=== PATIENT | female | born 1935 | race African-American/Black ===

== ENCOUNTER 2018-08-31 23:49 | Emergency (ER) | payer BC, MEDICARE ==
[~2018-08-31] VITALS: Ht 172.7 cm; Wt 55.0 kg
[2018-09-01 04:58] LABS: BASOPHILS % 0.5 % (0.0-2.0); EOSINOPHILS % 0.3 % (0.0-5.0); HEMATOCRIT. 31.7 % (36.0-48.0); HEMOGLOBIN. 10.1 g/dL (12.0-16.0); LYMPHOCYTES % 17.1 % (20.0-50.0); MEAN CORPUSCULAR HEMOGLOBIN 21.9 pg (28.0-32.0); MEAN CORPUSCULAR VOLUME 68.7 fL (81.0-99.0); MONOCYTES % 10.4 % (2.0-8.0); NEUTROPHILS % 71.7 % (40.0-76.0); PLATELET 162 x1000/uL (130-400); RED BLOOD CELL COUNT 4.62 mill/uL (4.2-5.4); RED CELL DISTRIBUTION WIDTH 14.9 % (11.6-14.6)
[2018-09-01 05:05] LABS: CHLORIDE 109 mEq/L (98-107)
[2018-09-01 05:06] LABS: INR 1.1; PROTHROMBIN TIME 11.2 sec (9.1-11.1)
[2018-09-01] MEDS ORDERED: NA PHOS,M-B/NA PHOS,DI-BA ENEMA 118ML PR ONE (06:00)
[2018-09-01 07:11] LABS: PLATELET ESTIMATE NORMAL
[2018-09-01 08:30] VITALS: BP 148/65
== END 2018-09-01 08:33 | disposition home or self-care (01) ==
LOC: ER 23:59
DX: K59.00 Constipation, unspecified (principal); I10 Essential (primary) hypertension; Z90.710 Acquired absence of both cervix and uterus; Z98.890 Other specified postprocedural states
CPT/HCPCS: 36415; 74018; 74176; 80053; 85025; 85610; 99285

== ENCOUNTER → 2019-08-17 | Outpatient (CLI) | payer MEDICARE, BC ==
[2019-08-17 09:09] LABS: BASOPHILS % 0.9 % (0.0-2.0); EOSINOPHILS % 0.9 % (0.0-5.0); HEMATOCRIT. 35.3 % (36.0-48.0); LYMPHOCYTES % 25.6 % (20.0-50.0); MEAN CORPUSCULAR HEMOGLOBIN 21.7 pg (28.0-32.0); MEAN CORPUSCULAR VOLUME 70.1 fL (81.0-99.0); MEAN PLATELET VOLUME 7.9 fl (7.4-10.4); MONOCYTES % 6.6 % (2.0-8.0); PLATELET 160 x1000/uL (130-400); RED BLOOD CELL COUNT 5.04 mill/uL (4.2-5.4); RED CELL DISTRIBUTION WIDTH 14.3 % (11.6-14.6)
[2019-08-17 09:18] LABS: CHLORIDE 109 mEq/L (98-107)
[2019-08-17 09:26] LABS: PHOSPHORUS 3.2 mg/dL (2.5-4.9)
[2019-08-17 09:27] LABS: LDL CHOLESTEROL 88 mg/dL (5-100)
[2019-08-17 09:28] LABS: HDL CHOLESTEROL 75 mg/dL (40-59); T4 FREE 1.17 ng/dL (0.76-1.46)
[2019-08-18 09:06] LABS: VITAMIN D 25-OH 66.2 ng/mL (30.0-100.0)
[2019-08-18 10:11] LABS: A/G RATIO 1.2 (0.7-1.7); ALBUMIN 3.9 g/dL (2.9-4.4); ALPHA-1-GLOBULIN 0.2 g/dL (0.0-0.4); ALPHA-2-GLOBULIN 0.8 g/dL (0.4-1.0); GAMMA GLOBULINS 1.2 g/dL (0.4-1.8); GLOBULIN TOTAL 3.2 g/dL (2.2-3.9); M-SPIKE Not Observed g/dL (Not Observed); TOTAL PROTEIN SERUM 7.1 g/dL (6.0-8.5)
[2019-08-19 14:18] LABS: ANGIOTENSION CONVERTING ENZYME 47 U/L (14-82)
== END | disposition home or self-care (01) ==
LOC: LAB 08:36
PROVIDERS: ATTEND Internal Medicine Endocrinology, Diabetes & Metabolism
DX: I10 Essential (primary) hypertension (principal); R73.9 Hyperglycemia, unspecified; E83.52 Hypercalcemia
CPT/HCPCS: 36415; 80061; 82164; 82306; 83036; 84100; 84155; 84165; 84439; 84443

== ENCOUNTER → 2019-08-24 | Outpatient (CLI) | payer MEDICARE, BC | END | disposition home or self-care (01) | LOC: NM 06:50 | PROVIDERS: ATTEND Internal Medicine Endocrinology, Diabetes & Metabolism | DX: E21.0 Primary hyperparathyroidism (principal) | CPT/HCPCS: 78070; A9500; C1893 ==

== ENCOUNTER 2019-12-13 18:49 | Emergency (ER) | payer MEDICARE, BC ==
[~2019-12-13] VITALS: Ht 172.7 cm; Wt 53.7 kg
[2019-12-13] MEDS ORDERED: LIDOCAINE HCL 2% JELLY 5ML TOP ONE (21:15)
[2019-12-13 23:00] VITALS: BP 156/78
== END 2019-12-13 23:01 | disposition home or self-care (01) ==
LOC: ER 19:02
DX: K64.4 Residual hemorrhoidal skin tags (principal)
CPT/HCPCS: 99283

== ENCOUNTER 2021-01-30 20:31 | Inpatient (IN) | payer MEDICARE, BC ==
[~2021-01-30] VITALS: Ht 172.7 cm; Wt 49.5 kg
[2021-01-30 22:12] LABS: BASOPHILS % 0.8 % (0.0-2.0); EOSINOPHILS % 0.1 % (0.0-5.0); HEMATOCRIT. 37.1 % (36.0-48.0); HEMOGLOBIN. 11.6 g/dL (12.0-16.0); LYMPHOCYTES % 11.1 % (20.0-50.0); MEAN CORPUSCULAR HEMOGLOBIN 21.7 pg (28.0-32.0); MEAN CORPUSCULAR VOLUME 69.5 fL (81.0-99.0); MEAN PLATELET VOLUME 9.3 fl (7.4-10.4); PLATELET 168 x1000/uL (130-400); RED BLOOD CELL COUNT 5.33 mill/uL (4.2-5.4); RED CELL DISTRIBUTION WIDTH 14.5 % (11.6-14.6)
[2021-01-30 22:17] LABS: CHLORIDE 105 mEq/L (98-107)
[2021-01-30 22:28] LABS: PLATELET ESTIMATE NORMAL
[2021-01-30 22:47] LABS: CLARITY URINE CLEAR (CLEAR); COLOR URINE YELLOW (YELLOW); KETONES URINE 1+ (NEGATIVE); LEUKOCYTE ESTERASE URINE NEGATIVE (NEGATIVE); NITRITE URINE NEGATIVE (NEGATIVE); OCCULT BLOOD URINE NEGATIVE (NEGATIVE); PH URINE 5.5 (4.5-8.0); PROTEIN URINE 2+ (NEGATIVE); SPECIFIC GRAVITY URINE 1.017 (1.005-1.030)
[2021-01-30] MEDS ORDERED: AMLODIPINE 5MG TABLET PO ONE (23:30)
[2021-01-31 02:55] VITALS: BP 179/71
[2021-01-31] MEDS ORDERED: AMLO-79 PO (03:51)
[2021-01-31] MEDS ORDERED: NEBI10TA2 PO (03:51)
[2021-01-31] MEDS ORDERED: HYDR100T26 PO (03:51)
[2021-01-31] MEDS ORDERED: CLON0.2T PO (03:51)
[2021-01-31] MEDS ORDERED: ACETAMINOPHEN 325MG TABLET PO PRN (04:30)
[2021-01-31] MEDS ORDERED: ONDANSETRON HCL 4MG/2ML INJ IV PRN (04:30)
[2021-01-31] MEDS ORDERED: NON FORMULARY PATIENT HOME MED XX SCH (04:30)
[2021-01-31] MEDS: CLONIDINE 0.2MG TABLET PO SCH ×3 (06:19→22:00)
[2021-01-31] MEDS ORDERED: NEBIVOLOL HCL 5 MG TABLET PO SCH ×2 (06:30→09:00)
[2021-01-31 07:51] VITALS: BP 192/70
[2021-01-31] MEDS: AMLODIPINE 10MG TABLET PO SCH (08:12)
[2021-01-31] MEDS: HYDRALAZINE HCL 100MG TABLET PO SCH ×3 (08:12→22:00)
[2021-01-31] MEDS: BENAZEPRIL 10MG TABLET PO SCH (08:13)
[2021-01-31] MEDS: HEPARIN 5000 UNITS/ML VIAL SUBCUT SCH ×2 (08:14→20:55)
[2021-01-31 09:14] LABS: BASOPHILS % 0.8 % (0.0-2.0); EOSINOPHILS % 0.3 % (0.0-5.0); HEMATOCRIT. 35.9 % (36.0-48.0); HEMOGLOBIN. 11.2 g/dL (12.0-16.0); LYMPHOCYTES % 18.3 % (20.0-50.0); MEAN CORPUSCULAR HEMOGLOBIN 21.6 pg (28.0-32.0); MEAN CORPUSCULAR VOLUME 69.4 fL (81.0-99.0); MEAN PLATELET VOLUME 9.2 fl (7.4-10.4); MONOCYTES % 10.1 % (2.0-8.0); NEUTROPHILS % 70.5 % (40.0-76.0); PLATELET 157 x1000/uL (130-400); RED BLOOD CELL COUNT 5.18 mill/uL (4.2-5.4); RED CELL DISTRIBUTION WIDTH 13.9 % (11.6-14.6)
[2021-01-31 09:22] LABS: CHLORIDE 109 mEq/L (98-107)
[2021-01-31 11:49] VITALS: BP 125/44
[2021-01-31 14:56] VITALS: BP 163/59
[2021-01-31] MEDS: ASPIRIN 81MG TABLET PO SCH (16:36)
[2021-01-31 20:00] VITALS: BP_SYST 103; BP_SYST 114; BP_SYST 93; BP_DIAS 33; BP_DIAS 38; BP_DIAS 39
[2021-01-31] MEDS: ATORVASTATIN CALCIUM 40MG TABLET PO SCH (20:55)
[2021-01-31] MEDS: TRAZODONE HCL 50MG TABLET PO SCH (20:55)
[2021-02-01] VITALS (8 sets, daily range): BP systolic 90–143; BP diastolic 35–47
[2021-02-01] MEDS: HYDRALAZINE HCL 100MG TABLET PO SCH ×3 (06:23→21:22)
[2021-02-01] MEDS: CLONIDINE 0.2MG TABLET PO SCH (06:23)
[2021-02-01] MEDS: BENAZEPRIL 10MG TABLET PO SCH (08:48)
[2021-02-01] MEDS: HEPARIN 5000 UNITS/ML VIAL SUBCUT SCH ×2 (08:49→21:19)
[2021-02-01] MEDS: CLOPIDOGREL 75MG TABLET PO SCH (08:49)
[2021-02-01] MEDS: ASPIRIN 81MG TABLET PO SCH (08:49)
[2021-02-01] MEDS: AMLODIPINE 10MG TABLET PO SCH (08:49)
[2021-02-01] MEDS ORDERED: NEBIVOLOL HCL 5 MG TABLET PO SCH (09:00)
[2021-02-01] MEDS: DOCUSATE SODIUM SUGAR FREE 100MG/10ML UDC NG SCH (10:36)
[2021-02-01] MEDS: CLONIDINE 0.1MG TABLET PO SCH ×2 (13:17→22:00)
[2021-02-01] MEDS: ATORVASTATIN CALCIUM 40MG TABLET PO SCH (21:20)
[2021-02-01] MEDS: TRAZODONE HCL 50MG TABLET PO SCH (21:20)
[2021-02-02 00:12] VITALS: BP 130/51
[2021-02-02 04:00] VITALS: BP 136/50
[2021-02-02] MEDS: CLONIDINE 0.1MG TABLET PO SCH (05:25)
[2021-02-02] MEDS: HYDRALAZINE HCL 100MG TABLET PO SCH ×2 (05:26→13:30)
[2021-02-02 06:41] LABS: BASOPHILS % 0.6 % (0.0-2.0); EOSINOPHILS % 1.3 % (0.0-5.0); HEMATOCRIT. 33.2 % (36.0-48.0); HEMOGLOBIN. 10.6 g/dL (12.0-16.0); LYMPHOCYTES % 21.8 % (20.0-50.0); MEAN CORPUSCULAR HEMOGLOBIN 22.1 pg (28.0-32.0); MEAN CORPUSCULAR VOLUME 69.5 fL (81.0-99.0); MONOCYTES % 12.6 % (2.0-8.0); NEUTROPHILS % 63.7 % (40.0-76.0); PLATELET 162 x1000/uL (130-400); RED BLOOD CELL COUNT 4.78 mill/uL (4.2-5.4); RED CELL DISTRIBUTION WIDTH 14.2 % (11.6-14.6)
[2021-02-02 08:00] VITALS: BP 130/49
[2021-02-02] MEDS: ASPIRIN 81MG TABLET PO SCH (08:30)
[2021-02-02] MEDS: DOCUSATE SODIUM SUGAR FREE 100MG/10ML UDC NG SCH (08:30)
[2021-02-02] MEDS: CLOPIDOGREL 75MG TABLET PO SCH (08:30)
[2021-02-02] MEDS: HEPARIN 5000 UNITS/ML VIAL SUBCUT SCH (08:31)
[2021-02-02] MEDS ORDERED: BENAZEPRIL 10MG TABLET PO SCH (09:00)
[2021-02-02] MEDS ORDERED: AMLODIPINE 10MG TABLET PO SCH (09:00)
[2021-02-02 12:11] VITALS: BP_SYST 114; BP_SYST 115; BP_SYST 137; BP_DIAS 40; BP_DIAS 41; BP_DIAS 47
[2021-02-02] MEDS ORDERED: SENNOSIDES/DOCUSATE SOD 8.6/50MG TABLET PO PRN (12:15)
[2021-02-02] MEDS ORDERED: BISACODYL 10MG SUPP PR PRN (12:15)
[2021-02-02] MEDS ORDERED: MAGNESIUM HYDROXIDE 400MG/5ML 30ML UDC PO PRN (12:15)
[2021-02-02 16:07] VITALS: BP 119/43
[2021-02-02 20:00] VITALS: BP_SYST 119; BP_SYST 124; BP_SYST 127; BP_DIAS 41; BP_DIAS 44; BP_DIAS 49
[2021-02-02] MEDS ORDERED: AMLODIPINE 5MG TABLET PO SCH (21:00)
== END 2021-02-02 20:15 | DRG 64 ==
LOC: ER 20:31 → 6WST 01-31 00:43 → EDBEDREQTM 01-31 00:50 → EDBEDREQ 01-31 00:50 → EDBEDREQDT 01-31 00:50 → ENRESERV 01-31 02:24
PROVIDERS: ADMIT Internal Medicine; ATTEND Internal Medicine
DX: I63.9 Cerebral infarction, unspecified (principal); N17.0 Acute kidney failure with tubular necrosis; I16.1 Hypertensive emergency; E44.0 Moderate protein-calorie malnutrition; J98.11 Atelectasis; Z68.1 Body mass index [BMI] 19.9 or less, adult; D64.9 Anemia, unspecified; E87.8 Other disorders of electrolyte and fluid balance, not elsewhere classified; G47.00 Insomnia, unspecified; K59.00 Constipation, unspecified; M41.9 Scoliosis, unspecified; I11.9 Hypertensive heart disease without heart failure; R82.4 Acetonuria; E03.9 Hypothyroidism, unspecified; Z20.822 Contact with and (suspected) exposure to COVID-19; Z79.899 Other long term (current) drug therapy; Z91.14 Patient's other noncompliance with medication regimen; Z86.73 Personal history of transient ischemic attack (TIA), and cerebral infarction without residual deficits; Z90.710 Acquired absence of both cervix and uterus; Z91.19 Patient's noncompliance with other medical treatment and regimen
CPT/HCPCS: 36415; 70551; 71045; 80048; 80053; 80061; 81003; 83036; 83735; 84484; 85025; 87426; 93005; 93306; 93880; 95816; 97116; 97162; 97166; 97530; 97535; 99291; J1644

== ENCOUNTER 2021-02-02 20:21 | Inpatient (IN) | payer MEDICARE, BC ==
[~2021-02-02] VITALS: Ht 172.7 cm; Wt 53.7 kg
[2021-02-02 20:00] VITALS: BP 130/40
[2021-02-02 20:21] VITALS: BP 130/40
[~2021-02-02 20:21] MED LIST: AMLO-79 PO; CLON0.2T PO; HYDR100T26 PO; NEBI10TA2 PO
[2021-02-02] MEDS ORDERED: MAGNESIUM HYDROXIDE 400MG/5ML 30ML UDC PO PRN (21:15)
[2021-02-02] MEDS ORDERED: SENNOSIDES/DOCUSATE SOD 8.6/50MG TABLET PO PRN (21:15)
[2021-02-02] MEDS ORDERED: ONDANSETRON HCL 4MG/2ML INJ IV PRN (21:15)
[2021-02-02] MEDS ORDERED: BISACODYL 10MG SUPP PR PRN (21:15)
[2021-02-02] MEDS ORDERED: ACETAMINOPHEN 325MG TABLET PO PRN (21:15)
[2021-02-02] MEDS: ATORVASTATIN CALCIUM 40MG TABLET PO SCH (22:05)
[2021-02-02] MEDS: HYDRALAZINE HCL 100MG TABLET PO SCH (22:06)
[2021-02-02] MEDS: TRAZODONE HCL 50MG TABLET PO SCH (22:06)
[2021-02-02] MEDS: AMLODIPINE 5MG TABLET PO SCH (22:07)
[2021-02-02] MEDS: HEPARIN 5000 UNITS/ML VIAL SUBCUT SCH (22:08)
[2021-02-03] MEDS: HYDRALAZINE HCL 100MG TABLET PO SCH ×3 (06:07→21:41)
[2021-02-03 06:44] LABS: BASOPHILS % 0.6 % (0.0-2.0); HEMATOCRIT. 32.6 % (36.0-48.0); HEMOGLOBIN. 10.2 g/dL (12.0-16.0); LYMPHOCYTES % 24.1 % (20.0-50.0); MEAN CORPUSCULAR HEMOGLOBIN 21.8 pg (28.0-32.0); MEAN CORPUSCULAR VOLUME 69.6 fL (81.0-99.0); MEAN PLATELET VOLUME 8.5 fl (7.4-10.4); MONOCYTES % 11.6 % (2.0-8.0); NEUTROPHILS % 62.7 % (40.0-76.0); PLATELET 175 x1000/uL (130-400); RED BLOOD CELL COUNT 4.69 mill/uL (4.2-5.4); RED CELL DISTRIBUTION WIDTH 14.2 % (11.6-14.6)
[2021-02-03 06:50] LABS: CHLORIDE 105 mEq/L (98-107)
[2021-02-03 08:00] VITALS: BP 143/50
[2021-02-03] MEDS ORDERED: AMLODIPINE 5MG TABLET PO SCH (09:00)
[2021-02-03] MEDS: AMLODIPINE 5MG TABLET PO SCH ×2 (09:27→21:43)
[2021-02-03] MEDS: ASPIRIN 81MG EC TABLET PO SCH (09:27)
[2021-02-03] MEDS: CLOPIDOGREL 75MG TABLET PO SCH (09:28)
[2021-02-03] MEDS: HEPARIN 5000 UNITS/ML VIAL SUBCUT SCH ×2 (09:28→21:44)
[2021-02-03] MEDS ORDERED: BISACODYL 5MG TABLET PO PRN (14:00)
[2021-02-03] MEDS: DOCUSATE SODIUM 100MG CAPSULE PO SCH (16:25)
[2021-02-03 20:00] VITALS: BP 130/35
[2021-02-03] MEDS ORDERED: TRAZODONE HCL 50MG TABLET PO SCH (21:00)
[2021-02-03] MEDS ORDERED: ATORVASTATIN CALCIUM 40MG TABLET PO SCH (21:00)
[2021-02-03] MEDS: ATORVASTATIN CALCIUM 40MG TABLET PO SCH (21:42)
[2021-02-03] MEDS: TRAZODONE HCL 50MG TABLET PO SCH (21:42)
[2021-02-04] MEDS: HYDRALAZINE HCL 100MG TABLET PO SCH ×3 (05:57→21:33)
[2021-02-04 08:00] VITALS: BP 117/45
[2021-02-04] MEDS: CLOPIDOGREL 75MG TABLET PO SCH (09:04)
[2021-02-04] MEDS: AMLODIPINE 5MG TABLET PO SCH ×2 (09:04→21:33)
[2021-02-04] MEDS: HEPARIN 5000 UNITS/ML VIAL SUBCUT SCH ×2 (09:04→21:35)
[2021-02-04] MEDS: ASPIRIN 81MG EC TABLET PO SCH (09:04)
[2021-02-04] MEDS: DOCUSATE SODIUM 100MG CAPSULE PO SCH ×2 (09:04→16:25)
[2021-02-04 20:00] VITALS: BP 145/53
[2021-02-04] MEDS: ATORVASTATIN CALCIUM 40MG TABLET PO SCH (21:32)
[2021-02-04] MEDS: TRAZODONE HCL 50MG TABLET PO SCH (21:33)
[2021-02-05] MEDS: HYDRALAZINE HCL 100MG TABLET PO SCH ×2 (05:21→13:30)
[2021-02-05 08:00] VITALS: BP 142/41
[2021-02-05] MEDS: ASPIRIN 81MG EC TABLET PO SCH (08:32)
[2021-02-05] MEDS: CLOPIDOGREL 75MG TABLET PO SCH (08:32)
[2021-02-05] MEDS: DOCUSATE SODIUM 100MG CAPSULE PO SCH ×2 (08:32→16:47)
[2021-02-05] MEDS: AMLODIPINE 5MG TABLET PO SCH ×2 (08:32→21:43)
[2021-02-05] MEDS: HEPARIN 5000 UNITS/ML VIAL SUBCUT SCH ×2 (08:33→21:44)
[2021-02-05] MEDS ORDERED: BISACODYL 10MG SUPP PR SCH (11:30)
[2021-02-05 20:00] VITALS: BP 135/46
[2021-02-05] MEDS: ATORVASTATIN CALCIUM 40MG TABLET PO SCH (21:39)
[2021-02-05] MEDS: TRAZODONE HCL 50MG TABLET PO SCH (21:40)
[2021-02-05] MEDS: SENNOSIDES/DOCUSATE SOD 8.6/50MG TABLET PO SCH (21:40)
[2021-02-06] MEDS: HYDRALAZINE HCL 100MG TABLET PO SCH ×4 (00:46→21:45)
[2021-02-06 07:54] VITALS: BP 132/44
[2021-02-06] MEDS: HEPARIN 5000 UNITS/ML VIAL SUBCUT SCH ×2 (09:55→21:43)
[2021-02-06] MEDS: AMLODIPINE 5MG TABLET PO SCH ×2 (09:55→21:44)
[2021-02-06] MEDS: DOCUSATE SODIUM 100MG CAPSULE PO SCH ×2 (09:55→16:55)
[2021-02-06] MEDS: CLOPIDOGREL 75MG TABLET PO SCH (09:55)
[2021-02-06] MEDS: ASPIRIN 81MG EC TABLET PO SCH (09:55)
[2021-02-06 20:00] VITALS: BP 149/64
[2021-02-06] MEDS: SENNOSIDES/DOCUSATE SOD 8.6/50MG TABLET PO SCH (21:43)
[2021-02-06] MEDS: TRAZODONE HCL 50MG TABLET PO SCH (21:44)
[2021-02-06] MEDS: ATORVASTATIN CALCIUM 40MG TABLET PO SCH (21:44)
[2021-02-07] MEDS: HYDRALAZINE HCL 100MG TABLET PO SCH ×3 (06:07→21:46)
[2021-02-07 08:30] VITALS: BP 122/56
[2021-02-07] MEDS: CLOPIDOGREL 75MG TABLET PO SCH (09:20)
[2021-02-07] MEDS: DOCUSATE SODIUM 100MG CAPSULE PO SCH ×2 (09:20→17:25)
[2021-02-07] MEDS: ASPIRIN 81MG EC TABLET PO SCH (09:21)
[2021-02-07] MEDS: AMLODIPINE 5MG TABLET PO SCH ×2 (09:21→21:46)
[2021-02-07] MEDS: HEPARIN 5000 UNITS/ML VIAL SUBCUT SCH ×2 (09:21→21:45)
[2021-02-07 20:00] VITALS: BP 158/40
[2021-02-07] MEDS: SENNOSIDES/DOCUSATE SOD 8.6/50MG TABLET PO SCH (21:45)
[2021-02-07] MEDS: ATORVASTATIN CALCIUM 40MG TABLET PO SCH (21:45)
[2021-02-07] MEDS: TRAZODONE HCL 50MG TABLET PO SCH (21:45)
[2021-02-07 22:00] VITALS: BP 126/60
[2021-02-08] MEDS: HYDRALAZINE HCL 100MG TABLET PO SCH ×3 (06:02→21:14)
[2021-02-08 08:00] VITALS: BP 127/50
[2021-02-08] MEDS: DOCUSATE SODIUM 100MG CAPSULE PO SCH ×2 (08:50→17:00)
[2021-02-08] MEDS: ASPIRIN 81MG EC TABLET PO SCH (08:50)
[2021-02-08] MEDS: AMLODIPINE 5MG TABLET PO SCH ×2 (08:51→21:14)
[2021-02-08] MEDS: CLOPIDOGREL 75MG TABLET PO SCH (08:51)
[2021-02-08] MEDS: HEPARIN 5000 UNITS/ML VIAL SUBCUT SCH ×2 (08:52→21:14)
[2021-02-08] MEDS ORDERED: LACTULOSE 20G/30ML UDC PO NR (13:45)
[2021-02-08] MEDS ORDERED: BISACODYL 10MG SUPP PR PRN (18:00)
[2021-02-08] MEDS ORDERED: NA PHOS,M-B/NA PHOS,DI-BA ENEMA 118ML PR NR (18:30)
[2021-02-08 20:00] VITALS: BP 145/54
[2021-02-08] MEDS: LACTULOSE 20G/30ML UDC PO SCH (21:00)
[2021-02-08] MEDS: TRAZODONE HCL 50MG TABLET PO SCH (21:13)
[2021-02-08] MEDS: ATORVASTATIN CALCIUM 40MG TABLET PO SCH (21:13)
[2021-02-08] MEDS: SENNOSIDES/DOCUSATE SOD 8.6/50MG TABLET PO SCH (21:14)
[2021-02-09] MEDS: HYDRALAZINE HCL 100MG TABLET PO SCH ×3 (05:49→20:45)
[2021-02-09 08:00] VITALS: BP 131/52
[2021-02-09] MEDS: DOCUSATE SODIUM 100MG CAPSULE PO SCH ×2 (08:39→17:25)
[2021-02-09] MEDS: CLOPIDOGREL 75MG TABLET PO SCH (08:39)
[2021-02-09] MEDS: ASPIRIN 81MG EC TABLET PO SCH (08:39)
[2021-02-09] MEDS: HEPARIN 5000 UNITS/ML VIAL SUBCUT SCH ×2 (08:39→20:46)
[2021-02-09] MEDS: AMLODIPINE 5MG TABLET PO SCH ×2 (08:44→20:44)
[2021-02-09 11:41] LABS: BASOPHILS % 0.9 % (0.0-2.0); EOSINOPHILS % 1.5 % (0.0-5.0); HEMATOCRIT. 34.8 % (36.0-48.0); HEMOGLOBIN. 10.8 g/dL (12.0-16.0); LYMPHOCYTES % 22.8 % (20.0-50.0); MEAN CORPUSCULAR HEMOGLOBIN 21.8 pg (28.0-32.0); MEAN CORPUSCULAR VOLUME 70.3 fL (81.0-99.0); MONOCYTES % 10.5 % (2.0-8.0); NEUTROPHILS % 64.3 % (40.0-76.0); PLATELET 295 x1000/uL (130-400); RED BLOOD CELL COUNT 4.96 mill/uL (4.2-5.4); RED CELL DISTRIBUTION WIDTH 14.4 % (11.6-14.6)
[2021-02-09] MEDS ORDERED: CLOP75TA15 PO (11:48)
[2021-02-09] MEDS ORDERED: BISA5TAB10 PO (11:48)
[2021-02-09] MEDS ORDERED: LIP40 PO (11:48)
[2021-02-09] MEDS ORDERED: HYDR100T26 PO (11:48)
[2021-02-09] MEDS ORDERED: AMLO5TAB88 PO (11:48)
[2021-02-09] MEDS ORDERED: ASPI-1406 PO (11:48)
[2021-02-09] MEDS ORDERED: SENN1TAB35 PO (11:48)
[2021-02-09 11:52] LABS: CHLORIDE 103 mEq/L (98-107)
[2021-02-09] MEDS ORDERED: LOSA25TA26 MT (11:54)
[2021-02-09] MEDS ORDERED: NEBIVOLOL HCL 5 MG TABLET PO SCH (12:00)
[2021-02-09] MEDS: LOSARTAN POTASSIUM 25 MG TABLET PO SCH (14:53)
[2021-02-09] MEDS: SENNOSIDES/DOCUSATE SOD 8.6/50MG TABLET PO SCH (20:44)
[2021-02-09] MEDS: ATORVASTATIN CALCIUM 40MG TABLET PO SCH (20:45)
[2021-02-09] MEDS: TRAZODONE HCL 50MG TABLET PO SCH (20:45)
[2021-02-09] MEDS: LACTULOSE 20G/30ML UDC PO SCH (20:47)
[2021-02-10] MEDS: HYDRALAZINE HCL 100MG TABLET PO SCH (06:02)
[2021-02-10] MEDS: DOCUSATE SODIUM 100MG CAPSULE PO SCH (09:00)
[2021-02-10] MEDS: CLOPIDOGREL 75MG TABLET PO SCH (09:00)
[2021-02-10] MEDS: ASPIRIN 81MG EC TABLET PO SCH (09:00)
[2021-02-10] MEDS: LOSARTAN POTASSIUM 25 MG TABLET PO SCH (09:01)
[2021-02-10] MEDS: AMLODIPINE 5MG TABLET PO SCH (09:01)
[2021-02-10] MEDS: HEPARIN 5000 UNITS/ML VIAL SUBCUT SCH (09:03)
[2021-02-10 10:48] VITALS: BP 131/69
== END 2021-02-10 12:12 | disposition home health service (06) | DRG 65 ==
PROVIDERS: ADMIT Psychiatry & Neurology Neurology; ATTEND Internal Medicine
DX: I63.9 Cerebral infarction, unspecified (principal); E44.0 Moderate protein-calorie malnutrition; Z68.1 Body mass index [BMI] 19.9 or less, adult; I16.1 Hypertensive emergency; J98.11 Atelectasis; D64.9 Anemia, unspecified; G47.00 Insomnia, unspecified; I10 Essential (primary) hypertension; N19 Unspecified kidney failure; R80.9 Proteinuria, unspecified; M41.84 Other forms of scoliosis, thoracic region; R49.0 Dysphonia; R00.1 Bradycardia, unspecified; R79.89 Other specified abnormal findings of blood chemistry; K59.00 Constipation, unspecified; I27.20 Pulmonary hypertension, unspecified; I36.1 Nonrheumatic tricuspid (valve) insufficiency; E87.8 Other disorders of electrolyte and fluid balance, not elsewhere classified; T23.071A Burn of unspecified degree of right wrist, initial encounter; X08.8XXA Exposure to other specified smoke, fire and flames, initial encounter; R82.4 Acetonuria; Z91.14 Patient's other noncompliance with medication regimen; Y93.89 Activity, other specified; Y92.89 Other specified places as the place of occurrence of the external cause; Y99.8 Other external cause status
CPT/HCPCS: 36415; 80048; 83735; 85025; 92523; 92610; 93970; 97110; 97112; 97116; 97162; 97166; 97530; 97535; J1644

== ENCOUNTER → 2021-04-23 | Outpatient (CLI) | payer MEDICARE, BC ==
[~2021-04-23] MED LIST changes: -AMLO-79 PO; +AMLO5TAB88 PO; +ASPI-1406 PO; +BISA5TAB10 PO; -CLON0.2T PO; +CLOP75TA15 PO; +LIP40 PO; +LOSA25TA26 MT; +LOSA50TA41 PO; -NEBI10TA2 PO; +SENN1TAB35 PO
[2021-04-23 12:40] LABS: CLARITY URINE CLEAR (CLEAR); COLOR URINE YELLOW (YELLOW); KETONES URINE NEGATIVE (NEGATIVE); LEUKOCYTE ESTERASE URINE NEGATIVE (NEGATIVE); NITRITE URINE NEGATIVE (NEGATIVE); OCCULT BLOOD URINE NEGATIVE (NEGATIVE); PROTEIN URINE NEGATIVE (NEGATIVE); UROBILINOGEN URINE 0.2 E.U./dL (0.2-1.0)
[2021-04-23 12:50] LABS: BASOPHILS % 1.5 % (0.0-2.0); EOSINOPHILS % 3.8 % (0.0-5.0); HEMOGLOBIN. 10.5 g/dL (12.0-16.0); LYMPHOCYTES % 30.2 % (20.0-50.0); MEAN CORPUSCULAR HEMOGLOBIN 22.9 pg (28.0-32.0); MEAN CORPUSCULAR VOLUME 69.9 fL (81.0-99.0); MEAN PLATELET VOLUME 7.7 fl (7.4-10.4); MONOCYTES % 11.9 % (2.0-8.0); NEUTROPHILS % 52.6 % (40.0-76.0); PLATELET 213 x1000/uL (130-400); RED BLOOD CELL COUNT 4.57 mill/uL (4.2-5.4); RED CELL DISTRIBUTION WIDTH 15.2 % (11.6-14.6)
[2021-04-23 12:57] LABS: CHLORIDE 110 mEq/L (98-107)
[2021-04-23 13:30] LABS: PARTIAL THROMBOPLASTIN TIME 28.5 sec (23.4-31.0); PROTHROMBIN TIME 10.9 sec (9.6-11.0)
[2021-04-23 13:38] LABS: PLATELET ESTIMATE NORMAL
== END | disposition home or self-care (01) ==
LOC: LAB 12:04
PROVIDERS: ATTEND Specialist
DX: Z01.812 Encounter for preprocedural laboratory examination (principal); Z20.822 Contact with and (suspected) exposure to COVID-19
CPT/HCPCS: 36415; 80048; 81003; 85025; 87426

== ENCOUNTER → 2021-04-24 | Day surgery (SDC) | payer MEDICARE, BC ==
[~2021-04-24] VITALS: Ht 172.7 cm; Wt 50.8 kg
[~2021-04-24] MED LIST changes: +BUPIVACAINE HCL/PF 0.5% (5MG/ML) 10ML ONE; +LACTATED RINGERS 1,000 ML IV SCH; +LIDOCAINE HCL 1% 20ML VIAL (Pyxis) INJ ONE; +METHYLENE BLUE 50 MG/10 ML AMP IV ONE; +POLYMYXIN B SULFATE 500000 UNITS/VIAL ONE; +SKIN ADHESIVE 0.7 GM EA TOP ONE
== END | disposition home or self-care (01) ==
LOC: OR 05:52
PROVIDERS: ATTEND Specialist
DX: R92.8 Other abnormal and inconclusive findings on diagnostic imaging of breast (principal); Z53.8 Procedure and treatment not carried out for other reasons; I10 Essential (primary) hypertension; E78.00 Pure hypercholesterolemia, unspecified; Z86.73 Personal history of transient ischemic attack (TIA), and cerebral infarction without residual deficits; Z79.899 Other long term (current) drug therapy; Z79.82 Long term (current) use of aspirin; Z98.890 Other specified postprocedural states
CPT/HCPCS: J3490 ×2; Q9968

== ENCOUNTER 2025-11-23 11:34 | Emergency (ER) | payer MEDICARE ==
[~2025-11-23] VITALS: Ht 172.7 cm; Wt 117.0 kg
[~2025-11-23 11:34] MED LIST changes: -AMLO5TAB88 PO; -BISA5TAB10 PO; -BUPIVACAINE HCL/PF 0.5% (5MG/ML) 10ML ONE; +HYDR100T11 PO; -HYDR100T26 PO; -LACTATED RINGERS 1,000 ML IV SCH; -LIDOCAINE HCL 1% 20ML VIAL (Pyxis) INJ ONE; -LOSA25TA26 MT; -METHYLENE BLUE 50 MG/10 ML AMP IV ONE; -POLYMYXIN B SULFATE 500000 UNITS/VIAL ONE; -SENN1TAB35 PO; -SKIN ADHESIVE 0.7 GM EA TOP ONE
[2025-11-23 11:36] VITALS: PULSE 97; RESP 18; O2SAT 100
[2025-11-23] MEDS: PROPOFOL 10MG/ML 100ML 100 ML IV SCH (12:28)
[2025-11-23] MEDS: IOHEXOL-350 100 ML BOTTLE ONE (12:28)
[2025-11-23 12:47] LABS: BASOPHILS % 0.7 % (0.0-2.0); EOSINOPHILS % 0.9 % (0.0-5.0); HEMATOCRIT. 31.7 % (36.0-48.0); HEMOGLOBIN. 9.8 g/dL (12.0-16.0); LYMPHOCYTES % 34.4 % (20.0-50.0); MEAN PLATELET VOLUME 8.6 fl (7.4-10.4); MONOCYTES % 8.7 % (2.0-8.0); NEUTROPHILS % 55.3 % (40.0-76.0); PLATELET 156 x1000/uL (130-400); RED BLOOD CELL COUNT 4.43 mill/uL (4.2-5.4); RED CELL DISTRIBUTION WIDTH 15.1 % (11.6-14.6)
[2025-11-23 13:04] LABS: CREATININE 1.1 mg/dL (0.6-1.0); TROPONIN I HIGH SENSITIVITY 12 ng/L (3.0-34)
[2025-11-23 13:05] LABS: ETHANOL BLOOD < 10 mg/dL (<10); INR 1.0; UREA NITROGEN BLOOD 12 mg/dL (9-23)
[2025-11-23 13:06] LABS: ASPARTATE AMINOTRANSFERASE 28 IU/L (<34); PROTEIN TOTAL 5.9 g/dL (6.0-8.3)
[2025-11-23 13:07] LABS: BILIRUBIN DIRECT 0.1 mg/dL (<=3.0); BILIRUBIN TOTAL 0.4 mg/dL (0.1-1.0)
[2025-11-23 13:41] VITALS: O2SAT 100
[2025-11-23 13:42] VITALS: BP 201/72; PULSE 41; RESP 18; TEMP 36.7; O2SAT 100
== END 2025-11-23 14:13 | disposition short-term general hospital (02) ==
LOC: ER 11:34 → CANBEDREQ 12:42 → ER 14:13
DX: G93.40 Encephalopathy, unspecified (principal); J96.00 Acute respiratory failure, unspecified whether with hypoxia or hypercapnia; F03.90 Unspecified dementia, unspecified severity, without behavioral disturbance, psychotic disturbance, mood disturbance, and anxiety; I10 Essential (primary) hypertension; I63.9 Cerebral infarction, unspecified; Z86.73 Personal history of transient ischemic attack (TIA), and cerebral infarction without residual deficits; Z79.02 Long term (current) use of antithrombotics/antiplatelets; Z79.82 Long term (current) use of aspirin; Z79.899 Other long term (current) drug therapy
CPT/HCPCS: 80076; 80048; 80320; 85025; 85610; 85730; 84484; 36415; 71045; 70496; 70498; 70450; 93005; 31500; 99291; 99292; Q9967; J2704; 94002; G0480